=== PATIENT | female | born 1975 | race Caucasian/White ===

== ENCOUNTER 2019-03-25 19:57 | Emergency (ER) | payer MEDICAID ==
[~2019-03-25] VITALS: Ht 157.5 cm; Wt 67.6 kg
[2019-03-25 20:00] VITALS: BP 140/90
--- NOTE | 2019-03-25 20:00 | NUR ---
TO BED # 10 AMBULATORY
--- NOTE | 2019-03-25 20:10 | NUR ---
PT BIB SELF C/O CHEST PRESSURE. PT STATES SUDDEN ONSET OF CHEST PRESSURE X2 DAYS; DENIES TRAUMA OR INJURY; PT STATES SHE HAS BEEN ON A LOT OF STRESS LATELY. PT STATES INTERMITTENT 6/10 CHEST PRESSURE, NON RADIATING. DENIES N/V. PT ACTING APPROPRIATLY, SPEAKING IN CLEAR AND COMPLETE SENTENCES. BREATHING EQUAL AND UNLABORED. PT IN GOWN, IN BED; BED IN LOWER LOCKED POSITION. PENDING ERMD EVAL. PMH: HTN
--- NOTE | 2019-03-25 20:45 | NUR ---
DR. BETTENCOURT AT BEDSIDE.
[2019-03-25 21:12] LABS: BASOPHILS # (AUTO) 0.1 K/uL (0.00-0.22); BASOPHILS % (AUTO) 0.8 % (0.0-2.0); EOSINOPHILS # (AUTO) 0.3 K/uL (0-0.4); EOSINOPHILS % (AUTO) 2.8 % (0.0-4.0); HEMATOCRIT 37.5 % (36-48); LYMPHOCYTES # (AUTO) 2.8 K/uL (2.5-16.5); LYMPHOCYTES % (AUTO) 29.3 % (20.5-51.1); MEAN CORPUSCULAR HEMOGLOBIN 31 pg (27-31); MEAN CORPUSCULAR HGB CONC 35 g/dL (33-37); MONOCYTES # (AUTO) 0.6 K/uL (0.8-1.0); MONOCYTES % (AUTO) 5.9 % (1.7-9.3); NEUTROPHILS # (AUTO) 5.8 K/uL (1.8-7.7); NEUTROPHILS % (AUTO) 61.2 % (42.2-75.2); PLATELET COUNT (AUTO) 292 K/uL (140-450); RED BLOOD CELL COUNT(AUTO) 4.26 MIL/uL (4.20-5.40); RED CELL DISTRIBUTION WIDTH 13.9 % (11.6-13.7); WHITE BLOOD COUNT (AUTO) 9.5 K/uL (4.8-10.8)
--- NOTE | 2019-03-25 21:22 | NUR ---
X-RAY AT BEDSIDE.
[2019-03-25 21:26] LABS: ANION GAP 12.7 (8-16); CARBON DIOXIDE 25.4 mmol/L (21-32); CREATININE 0.7 mg/dL (0.6-1.3); POTASSIUM 4.1 mmol/L (3.5-5.1)
[2019-03-25 21:31] LABS: ALBUMIN 3.7 g/dL (3.4-5.0); TOTAL BILIRUBIN 0.4 mg/dL (0.0-1.0)
--- NOTE | 2019-03-25 22:33 | NUR ---
PT SPEAKING IN CLEAR AND COMPLETE SENTENCES, PT ACTING APPROPRIATLY. STATES PAIN 4/10, STATES COPING AT THIS TIME. PT POSITIONED FOR COMFORT.
[2019-03-25 23:30] VITALS: BP 119/82
--- NOTE | 2019-03-25 23:30 | NUR ---
Patient discharged with v/s stable. Written and verbal after care instructions given and explained. Patient alert, oriented and verbalized understanding of instructions. Ambulatory with steady gait. All questions addressed prior to discharge. ID band removed. Patient advised to follow up with PMD. Rx of PEPCID 20MG given. Patient educated on indication of medication including possible reaction and side effects. Opportunity to ask questions provided and answered.
== END 2019-03-25 23:30 | disposition home or self-care (01) ==
LOC: MED 19:57
DX: R07.89 Other chest pain (principal); K21.9 Gastro-esophageal reflux disease without esophagitis; I10 Essential (primary) hypertension; E11.9 Type 2 diabetes mellitus without complications; Z90.49 Acquired absence of other specified parts of digestive tract
CPT/HCPCS: 36415; 71045; 80053; 84484; 85025; 99284; Q0092; 93005

== ENCOUNTER 2019-12-30 19:11 | Emergency (ER) | payer MEDICAID ==
[~2019-12-30] VITALS: Ht 157.5 cm; Wt 67.1 kg
[2019-12-30 19:15] VITALS: BP 140/97
[2019-12-30] MEDS ORDERED: KETOROLAC 30 MG/ML VIAL IM ONE (19:40)
[2019-12-30 21:01] VITALS: BP 140/97
== END 2019-12-30 21:01 | disposition home or self-care (01) ==
LOC: MED 19:11
DX: S63.91XA Sprain of unspecified part of right wrist and hand, initial encounter (principal); E11.9 Type 2 diabetes mellitus without complications; I10 Essential (primary) hypertension; X50.9XXA Other and unspecified overexertion or strenuous movements or postures, initial encounter; Y93.89 Activity, other specified; Y92.89 Other specified places as the place of occurrence of the external cause; Y99.8 Other external cause status
CPT/HCPCS: 29125; 73130; 96372; 99283; J1885

== ENCOUNTER 2020-11-22 16:09 | Emergency (ER) | payer OTHER, MEDICAID ==
[~2020-11-22] VITALS: Ht 154.9 cm; Wt 65.8 kg
[2020-11-22 16:16] VITALS: BP 154/95
--- NOTE | 2020-11-22 16:22 | NUR ---
45YO F C/O DIZZINESS, WEAKNESS X 2 WEEKS. ALSO COMPLAINS OF 8/10 THROBBING HEADACHE. COVID TESTED POSITIVE IN AUGUST & NEGATIVE IN SEPTEMBER. UPON ASSESSMENT, VSS. AOX4. PERRL. HEART RATE NORMAL, REGLAR RHYTHM. CLEAR BREATH SOUNDS. 5/5 STRENGTH ON ALL EXTREMITIES. ABLE TO AMBLE STEADILY. BLOOD SUGAR 95 AT THIS TIME. PT POSITIONED COMFORTABLY IN BED WITH 2 SIDERAILS UP. ERMD MADE AWARE OF PT STATUS. LMP: NOV 07, 2020 PMH: DM, HTN, DEPRESSION NKA
[2020-11-22 16:23] VITALS: BP 154/95
[2020-11-22 17:05] LABS: BASOPHILS # (AUTO) 0.1 K/uL (0.00-0.22); BASOPHILS % (AUTO) 1.5 % (0.0-2.0); EOSINOPHILS # (AUTO) 0.2 K/uL (0-0.4); EOSINOPHILS % (AUTO) 3.5 % (0.0-4.0); HEMATOCRIT 39.5 % (36-48); HEMOGLOBIN 13.6 g/dL (12.0-16.0); LYMPHOCYTES # (AUTO) 2.8 K/uL (2.5-16.5); LYMPHOCYTES % (AUTO) 41.4 % (20.5-51.1); MEAN CORPUSCULAR HEMOGLOBIN 31 pg (27-31); MEAN CORPUSCULAR HGB CONC 34 g/dL (33-37); MEAN CORPUSCULAR VOLUME 89.2 fL (80-94); MONOCYTES # (AUTO) 0.5 K/uL (0.8-1.0); MONOCYTES % (AUTO) 7.2 % (1.7-9.3); NEUTROPHILS # (AUTO) 3.1 K/uL (1.8-7.7); NEUTROPHILS % (AUTO) 46.4 % (42.2-75.2); PLATELET COUNT (AUTO) 284 K/uL (140-450); RED BLOOD CELL COUNT(AUTO) 4.43 MIL/uL (4.20-5.40); RED CELL DISTRIBUTION WIDTH 13.1 % (11.6-13.7); WHITE BLOOD COUNT (AUTO) 6.7 K/uL (4.8-10.8)
--- NOTE | 2020-11-22 17:15 | NUR ---
distribution tech at bedside.
[2020-11-22 17:23] LABS: ALBUMIN 4.1 g/dL (3.4-5.0); ANION GAP 12.6 (8-16); CARBON DIOXIDE 24.8 mmol/L (21-32); CREATININE 0.8 mg/dL (0.6-1.3); POTASSIUM 3.4 mmol/L (3.5-5.1); TOTAL BILIRUBIN 0.5 mg/dL (0.0-1.0)
[2020-11-22 17:26] LABS: BARBITURATE, URINE NEGATIVE ng/ml (NEG <=200); BENZODIAZEPINE, URINE NEGATIVE ng/mL (NEG <=200); CANNABINOID, URINE NEGATIVE ng/mL (NEG <=50); COCAINE, URINE NEGATIVE ng/mL (NEG <=300); OPIATE, URINE NEGATIVE ng/mL (NEG <=2000); PHENCYCLIDINE SCREEN,URINE NEGATIVE ng/mL (NEG <=25)
== END 2020-11-22 18:25 | disposition home or self-care (01) ==
LOC: MED 16:09
DX: N39.0 Urinary tract infection, site not specified (principal); R53.83 Other fatigue; R03.0 Elevated blood-pressure reading, without diagnosis of hypertension; I10 Essential (primary) hypertension; F32.9 Major depressive disorder, single episode, unspecified
CPT/HCPCS: 36415; 71045; 80053; 80305; 81002; 81025; 83880; 84484; 85025; 87086; 93005; 99285